=== PATIENT | female | born 1955 | race Caucasian/White ===

== ENCOUNTER 2019-07-18 09:59 | Outpatient (CLI) | payer MEDICARE, OTHER ==
--- NOTE | 2019-07-18 10:33 | MMO ---
Bilateral MAMMO Bilat Screen [facility]. CLINICAL HISTORY: Patient is 63 years old and is seen for screening. The patient has no family history of breast cancer. The patient has a history of Excisional biopsy procedure revealed invasive ductal left breast carcinoma in October,; invasive ductal left breast carcinoma in October, and Core biopsy procedure revealed invasive ductal left breast carcinoma in September,. The patient has a history of left Lumpectomy in October, - malignant. VIEWS: The views performed were: bilateral craniocaudal with tomosynthesis and bilateral mediolateral oblique with tomosynthesis. FILMS COMPARED: The present examination has been compared to prior imaging studies performed at [facility] on 04/03/2013, 10/01/2014, 10/20/2015 and 07/10/2017. This study has been interpreted with the assistance of computer-aided detection. MAMMOGRAM FINDINGS: There are scattered fibroglandular densities. Finding 1: There are stable benign appearing calcifications seen in both breasts. Finding 2: There are stable post operative changes seen in the left breast. There are no suspicious masses, suspicious calcifications, or new areas of architectural distortion. IMPRESSION: THERE IS NO MAMMOGRAPHIC EVIDENCE OF MALIGNANCY. A ROUTINE FOLLOW-UP MAMMOGRAM IN 1 YEAR IS RECOMMENDED. THE RESULTS OF THIS EXAM WERE SENT TO THE PATIENT. ACR BI-RADS Category 2 - Benign finding MAMMOGRAPHY NOTE: 1. A negative mammogram report should not delay a biopsy if a dominant of clinically suspicious mass is present. 2. Approximately 10% to 15% of breast cancers are not detected by mammography. 3. Adenosis and dense breasts may obscure an underlying neoplasm. Reported by: MARISOL GARAY MD Electonically Signed: [id number]
== END 2019-07-18 10:00 | disposition home or self-care (01) ==
LOC: BICMAMMO 09:59
PROVIDERS: ATTEND Family Medicine
DX: Z12.31 Encounter for screening mammogram for malignant neoplasm of breast (principal); Z85.3 Personal history of malignant neoplasm of breast
CPT/HCPCS: 77063; 77067

== ENCOUNTER 2021-07-14 07:16 | Emergency (ER) | payer MEDICARE, OTHER ==
[2021-07-14 08:27] LABS: #Basophils 0.1 thou/uL (0.0-0.2); #Eosinphils 0.1 thou/uL (0.0-0.7); #Lymphocytes 1.7 thou/uL (1.20-3.40); #Monocytes 0.3 thou/uL (0.11-0.59); #Neutrophils 6.1 thou/uL (1.40-6.50); %Basophils 0.8 % (0.0-1.0); %Eosinophils 1.2 % (0.0-10.0); %Lymphocytes 20.8 % (21.0-51.0); %Monocytes 3.8 % (0.0-10.0); %Neutrophils 73.5 % (42.0-75.0); Hemoglobin 10.2 g/dL (12.0-16.0); Mean Corpuscular HGB CONC 34.8 g/dL (32.0-36.0); Mean Corpuscular Hemoglobin 38.8 pg (27.0-31.0); Mean Platelet Volume 11.2 fL (7.4-10.4); Platelet Count 316 thou/uL (130-400); RBC Distribution Width 12.7 % (11.5-14.5); Red Blood Cell (RBC) Count 2.63 mill/uL (4.20-5.40); White Blood Cell (WBC) Count 8.3 thou/uL (4.8-10.8)
[2021-07-14 08:31] LABS: Prothrombin Time 13.6 sec (12.0-14.7)
[2021-07-14 09:05] LABS: MDiff Complete? YES; Macrocytosis SLIGHT = 6-15 cells (100X) (0-5/hpf); Platelet Morphology Comment Appears Adequate; Polychromasia SLIGHT = 2-3 cells (100X) (0-2/hpf)
[2021-07-14 10:01] LABS: ALT (SGPT) 9 U/L (8-55); AST (SGOT) 13 U/L (5-34); Alkaline Phosphatase 82 U/L (40-110); Anion Gap 12 mmol/L (10-20); BUN (Urea Nitrogen) 12 mg/dL (9.8-20.1); Bilirubin, Total 0.6 mg/dL (0.2-1.2); Calc. Creatinine Clearance 0 mL/min (70-130); Calcium 9.1 mg/dL (7.8-10.44); Carbon Dioxide 24 mmol/L (23-31); Chloride 106 mmol/L (98-107); Glucose 149 mg/dL (80-115); Potassium 4.2 mmol/L (3.5-5.1); Sodium 138 mmol/L (136-145)
== END 2021-07-14 10:05 | disposition home or self-care (01) ==
LOC: ERS 07:16
DX: K59.00 Constipation, unspecified (principal); K92.2 Gastrointestinal hemorrhage, unspecified; I10 Essential (primary) hypertension; F17.210 Nicotine dependence, cigarettes, uncomplicated; Z85.3 Personal history of malignant neoplasm of breast; Z79.899 Other long term (current) drug therapy
CPT/HCPCS: 36415; 74018; 80053; 85025; 85610

== ENCOUNTER 2023-02-08 13:20 | Outpatient (CLI) | payer MEDICARE | END 2023-02-08 13:21 | disposition home or self-care (01) | LOC: BICMAMMO 13:20 | PROVIDERS: ATTEND Family Medicine | DX: Z12.31 Encounter for screening mammogram for malignant neoplasm of breast (principal); Z78.0 Asymptomatic menopausal state; M81.0 Age-related osteoporosis without current pathological fracture | CPT/HCPCS: 77063; 77067; 77080 ==

== ENCOUNTER 2023-05-24 07:42 | Outpatient (CLI) | payer MEDICARE, OTHER ==
[2023-05-24] MEDS ORDERED: Iopamidol-370 76% 500 ML MDV (1 ML CHARGE) ONE (09:45)
== END 2023-05-24 07:43 | disposition home or self-care (01) ==
LOC: BICCT 07:42
PROVIDERS: ATTEND Specialist
DX: H90.3 Sensorineural hearing loss, bilateral (principal)
CPT/HCPCS: 70481; 70496

== ENCOUNTER 2023-06-01 03:37 | Emergency (ER) | payer MEDICARE, OTHER | END 2023-06-01 05:51 | disposition home or self-care (01) | LOC: ERS 03:37 | DX: H93.A2 Pulsatile tinnitus, left ear (principal); F17.210 Nicotine dependence, cigarettes, uncomplicated | CPT/HCPCS: 99283 ==

== ENCOUNTER 2023-06-12 17:47 | Inpatient (IN) | payer MEDICARE, OTHER ==
[2023-06-12 18:17] LABS: Hematocrit 12.4 % (36.0-47.0); Hemoglobin 4.1 g/dL (12.0-16.0); Mean Corpuscular HGB CONC 33.1 g/dL (32.0-36.0); Mean Corpuscular Hemoglobin 43.2 pg (27.0-31.0); Mean Corpuscular Volume 130.5 fl (78.0-98.0); Mean Platelet Volume 13.1 fL (7.4-10.4); Platelet Count 354 10x3/uL (130-400); RBC Distribution Width 16.7 % (11.5-14.5); Red Blood Cell (RBC) Count 0.95 mill/uL (4.20-5.40); White Blood Cell (WBC) Count 7.6 10x3/uL (4.8-10.8)
[2023-06-12 18:23] LABS: Delete Auto Diff?? YES; Manual Diff?? YES
[2023-06-12 18:41] LABS: ALT (SGPT) 31 U/L (8-55); AST (SGOT) 18 U/L (5-34); Albumin 4.4 g/dL (3.4-4.8); Alkaline Phosphatase 80 U/L (40-110); Anion Gap 13 mmol/L (10-20); BUN (Urea Nitrogen) 12 mg/dL (9.8-20.1); Bilirubin, Total 0.3 mg/dL (0.2-1.2); Calc. Creatinine Clearance 0 mL/min (70-130); Calcium 9.1 mg/dL (7.8-10.44); Carbon Dioxide 24 mmol/L (23-31); Chloride 101 mmol/L (98-107); Estimated GFR 90; Glucose 121 mg/dL (80-115); Protein, Total 7.4 g/dL (5.8-8.1); Sodium 134 mmol/L (136-145)
[2023-06-12 19:02] LABS: Anisocytosis SLIGHT = 6-15 cells HPF (0-5); Band 3 % (5-11); CellaVision Operator ID LAB.KB; Eosinophils 3 % (0-10); Large Platelets 39.4 % (0-5); Lymphocytes 49 % (21-51); Macrocytosis MODERATE=16-30 cells HPF (0-5); Monocytes 1 % (0-10); Neutrophil 44 % (42-75); Ovalocytes SLIGHT = 2-5 cells HPF (0-1); Platelet Adequacy Comment Platelets Normal; Polychromasia SLIGHT = 2-3 cells HPF (0-2); Smudge Cells 10.1 %; Total Cell Count 99
[2023-06-12] MEDS ORDERED: Ondansetron ODT 4 MG TAB PO PRN (19:09)
[2023-06-12] MEDS ORDERED: Acetaminophen 650 MG Suppository PR PRN (19:09)
[2023-06-12] MEDS ORDERED: Ondansetron PF 4 MG/2 ML Vial IVP PRN (19:09)
[2023-06-12 20:58] VITALS: BMI 23.1
[2023-06-12] MEDS ORDERED: ALPRAZolam 0.25 MG TAB PO SCH (21:45)
[2023-06-12] MEDS: Acetaminophen 325 MG TAB PO PRN (22:17)
[2023-06-12] MEDS: Pantoprazole 40 MG VIAL IVP SCH (22:19)
[2023-06-12 22:35] LABS: Iron 212 ug/dL (50-170); Iron Binding Capacity, Total 341 mcg/dL (265-497)
[2023-06-13 04:20] LABS: Ferritin 428.2 ng/mL (10-291)
[2023-06-13 04:46] LABS: Hematocrit 19.5 % (36.0-47.0); Hemoglobin 6.5 g/dL (12.0-16.0); Mean Corpuscular HGB CONC 33.3 g/dL (32.0-36.0); Mean Corpuscular Hemoglobin 35.7 pg (27.0-31.0); Mean Platelet Volume 13.3 fL (7.4-10.4); RBC Distribution Width 23.6 % (11.5-14.5); Red Blood Cell (RBC) Count 1.82 mill/uL (4.20-5.40); White Blood Cell (WBC) Count 7.2 10x3/uL (4.8-10.8)
[2023-06-13 04:51] LABS: Mean Corpuscular Volume 107.1 fl (78.0-98.0)
[2023-06-13 04:52] LABS: Delete Auto Diff?? YES; Manual Diff?? YES; Platelet Count 249 10x3/uL (130-400)
[2023-06-13] MEDS: Acetaminophen 325 MG TAB PO PRN ×4 (04:57→21:58)
[2023-06-13 05:41] LABS: Anisocytosis SLIGHT = 6-15 cells HPF (0-5); Band 1 % (5-11); CellaVision Operator ID lab.abc; Large Platelets 11.7 % (0-5); Lymphocytes 36 % (21-51); Macrocytosis SLIGHT = 6-15 cells HPF (0-5); Monocytes 7 % (0-10); Neutrophil 55 % (42-75); Platelet Adequacy Comment Platelets Normal; Polychromasia SLIGHT = 2-3 cells HPF (0-2); Smudge Cells 2.9 %; Total Cell Count 103
[2023-06-13 05:42] LABS: Anion Gap 10 mmol/L (10-20); BUN (Urea Nitrogen) 10 mg/dL (9.8-20.1); Calc. Creatinine Clearance 80 mL/min (70-130); Calcium 8.6 mg/dL (7.8-10.44); Carbon Dioxide 23 mmol/L (23-31); Chloride 107 mmol/L (98-107); Estimated GFR 96; Glucose 98 mg/dL (80-115); Potassium 4.1 mmol/L (3.5-5.1); Sodium 136 mmol/L (136-145)
[2023-06-13] MEDS: Pantoprazole 40 MG VIAL IVP SCH ×2 (09:11→21:58)
[2023-06-13] MEDS ORDERED: Bisacodyl 10 MG SUPP PR PRN (11:59)
[2023-06-13] MEDS ORDERED: Polyethylene Glycol 3350 17 GM Packet PO PRN (11:59)
[2023-06-13 12:53] LABS: INR-International Normal Ratio 1.2; Prothrombin Time 15.2 sec (12.0-14.7)
[2023-06-13 12:54] LABS: PTT 27.5 sec (22.9-36.1)
[2023-06-13] MEDS: ALPRAZolam 0.25 MG TAB PO PRN (12:56)
[2023-06-13 14:47] LABS: Hematocrit 23.4 % (36.0-47.0); Mean Corpuscular HGB CONC 34.2 g/dL (32.0-36.0); Mean Corpuscular Hemoglobin 35.4 pg (27.0-31.0); Mean Platelet Volume 13.2 fL (7.4-10.4); Platelet Count 253 10x3/uL (130-400); RBC Distribution Width 23.9 % (11.5-14.5); Red Blood Cell (RBC) Count 2.26 mill/uL (4.20-5.40); White Blood Cell (WBC) Count 8.3 10x3/uL (4.8-10.8)
[2023-06-13 15:02] LABS: Mean Corpuscular Volume 103.5 fl (78.0-98.0)
[2023-06-14 04:48] LABS: Hematocrit 22.6 % (36.0-47.0); Hemoglobin 7.7 g/dL (12.0-16.0); Mean Corpuscular HGB CONC 34.1 g/dL (32.0-36.0); Mean Corpuscular Hemoglobin 35.6 pg (27.0-31.0); Mean Corpuscular Volume 104.6 fl (78.0-98.0); Mean Platelet Volume 13.3 fL (7.4-10.4); Platelet Count 230 10x3/uL (130-400); RBC Distribution Width 23.6 % (11.5-14.5); Red Blood Cell (RBC) Count 2.16 mill/uL (4.20-5.40); White Blood Cell (WBC) Count 7.5 10x3/uL (4.8-10.8)
[2023-06-14] MEDS: Acetaminophen 325 MG TAB PO PRN ×2 (04:58→13:03)
[2023-06-14 05:05] LABS: Delete Auto Diff?? YES; Manual Diff?? YES
[2023-06-14 05:15] LABS: Anion Gap 11 mmol/L (10-20); BUN (Urea Nitrogen) 11 mg/dL (9.8-20.1); Calc. Creatinine Clearance 79 mL/min (70-130); Calcium 8.7 mg/dL (7.8-10.44); Carbon Dioxide 21 mmol/L (23-31); Chloride 107 mmol/L (98-107); Estimated GFR 95; Glucose 108 mg/dL (80-115); Potassium 4.2 mmol/L (3.5-5.1); Sodium 135 mmol/L (136-145)
[2023-06-14 05:30] LABS: Anisocytosis MODERATE=16-30 cells HPF (0-5); Band 22 % (5-11); CellaVision Operator ID LAB.JMM; Elliptocytes SLIGHT = 2-5 cells HPF (0-1); Eosinophils 2 % (0-10); Large Platelets 31.7 % (0-5); Lymphocytes 25 % (21-51); Macrocytosis SLIGHT = 6-15 cells HPF (0-5); Metamyelocyte 3 % (0-0); Monocytes 1 % (0-10); Myelocyte 1 % (0-0); Neutrophil 46 % (42-75); Nucleated RBC (Manual Ct) 1 % (0); Platelet Adequacy Comment Platelets Normal; Polychromasia MODERATE = 3-4 cells HPF (0-2); Total Cell Count 101
[2023-06-14] MEDS ORDERED: Polyethylene Glycol 3350 17 GM Packet PO SCH (09:00)
[2023-06-14] MEDS ORDERED: Folic Acid 1 MG TAB PO SCH (09:00)
[2023-06-14] MEDS: Pantoprazole 40 MG VIAL IVP SCH (09:36)
[2023-06-14 12:15] LABS: Hematocrit 23.5 % (36.0-47.0)
[2023-06-14] MEDS: ALPRAZolam 0.25 MG TAB PO PRN (13:03)
[2023-06-14 13:56] VITALS: BP 153/70; TEMP 97.9
[2023-06-14 15:15] LABS: Haptoglobin 180 mg/dL (37-355)
[2023-06-15 13:39] LABS: A/G Ratio 1.2 (0.7-1.7); Albumin 3.7 g/dL (2.9-4.4); Alpha 1 0.3 g/dL (0.0-0.4); Alpha 2 0.8 g/dL (0.4-1.0); Beta 1.1 g/dL (0.7-1.3); Globulin, Total 3.1 g/dL (2.2-3.9); M-Spike Not Observed g/dL (Not Observed)
[2023-06-15 14:15] LABS: Hemoglobin A2 2.1 % (1.8-3.2); Interpretation Note: (.)
== END 2023-06-14 16:10 | disposition home or self-care (01) | DRG 812 ==
LOC: ERS 17:47 → 2NO 18:53
PROVIDERS: ADMIT Student in an Organized Health Care Education/Training Program; ATTEND Emergency Medicine
PROC: 30233N1 Transfusion of Nonautologous Red Blood Cells into Peripheral Vein, Percutaneous Approach (ICD-10-PCS; principal; 2023-06-12)
DX: D53.9 Nutritional anemia, unspecified (principal); E87.1 Hypo-osmolality and hyponatremia; F41.9 Anxiety disorder, unspecified; F32.A Depression, unspecified; F17.210 Nicotine dependence, cigarettes, uncomplicated; K59.00 Constipation, unspecified; R16.0 Hepatomegaly, not elsewhere classified; K80.20 Calculus of gallbladder without cholecystitis without obstruction; Z90.710 Acquired absence of both cervix and uterus; Z98.890 Other specified postprocedural states; Z85.3 Personal history of malignant neoplasm of breast; Z88.1 Allergy status to other antibiotic agents; Z88.8 Allergy status to other drugs, medicaments and biological substances; Z88.2 Allergy status to sulfonamides; Z88.0 Allergy status to penicillin; Z79.899 Other long term (current) drug therapy
CPT/HCPCS: 36415; 36430; 76705; 80048; 80053; 80061; 81001; 82607; 82728; 83010; 83021; 83540; 83550; 83615; 84155; 84165; 84443; 85025; 85610; 85730; 86850; 86900; 86901; 94760; C9113; P9016

== ENCOUNTER 2023-07-19 10:12 | Day surgery (SDC) | payer MEDICARE, OTHER ==
[2023-07-19] MEDS ORDERED: diphenhydrAMINE 25 MG CAP PO SCH (10:45)
[2023-07-19] MEDS ORDERED: Acetaminophen 500 MG TAB PO SCH (10:45)
[2023-07-19] MEDS ORDERED: Acetaminophen 500 MG TAB ONE (11:32)
[2023-07-19 14:41] VITALS: BP 151/69; TEMP 98.3
== END 2023-07-19 14:41 | disposition home or self-care (01) ==
LOC: ONC/OP 10:12
PROVIDERS: ATTEND Internal Medicine Hematology & Oncology
DX: D64.9 Anemia, unspecified (principal)
CPT/HCPCS: 36430; 86850; 86900; 86901; 86920; P9016

== ENCOUNTER 2023-08-09 11:05 | Day surgery (SDC) | payer MEDICARE, OTHER ==
[2023-08-09] MEDS ORDERED: Acetaminophen 500 MG TAB PO SCH (11:30)
[2023-08-09] MEDS ORDERED: diphenhydrAMINE 25 MG CAP PO SCH (11:30)
[2023-08-09 11:43] VITALS: BP 153/68; TEMP 98.2
[2023-08-09] MEDS ORDERED: diphenhydrAMINE 25 MG CAP ONE (11:45)
[2023-08-09] MEDS ORDERED: Acetaminophen 500 MG TAB ONE (11:45)
== END 2023-08-09 13:50 | disposition home or self-care (01) ==
LOC: ONC/OP 11:05
PROVIDERS: ATTEND Internal Medicine Hematology & Oncology
DX: D64.9 Anemia, unspecified (principal); D69.6 Thrombocytopenia, unspecified
CPT/HCPCS: 86850; 86870; 86880; 86900; 86901

== ENCOUNTER 2023-08-10 10:04 | Day surgery (SDC) | payer MEDICARE, OTHER ==
[2023-08-10] MEDS ORDERED: Acetaminophen 500 MG TAB ONE (10:32)
[2023-08-10] MEDS ORDERED: diphenhydrAMINE 25 MG CAP ONE (10:32)
[2023-08-10] MEDS ORDERED: Acetaminophen 500 MG TAB PO SCH (11:15)
[2023-08-10] MEDS ORDERED: diphenhydrAMINE 25 MG CAP PO SCH (11:15)
[2023-08-10 14:12] VITALS: BP 154/70; TEMP 98.5
== END 2023-08-10 13:20 | disposition home or self-care (01) ==
LOC: ONC/OP 10:04
PROVIDERS: ATTEND Internal Medicine Hematology & Oncology
DX: D64.9 Anemia, unspecified (principal); D69.59 Other secondary thrombocytopenia
CPT/HCPCS: 36430; 86850; 86860; 86870 ×2; 86880; 86900; 86901; 86902; 86904; 86905; 86920; 86922; 86972; P9016

== ENCOUNTER 2023-08-11 12:39 | Emergency (ER) | payer MEDICARE, OTHER | END 2023-08-11 13:30 | disposition left against medical advice (07) | LOC: ERS 12:39 | DX: Z53.21 Procedure and treatment not carried out due to patient leaving prior to being seen by health care provider (principal) ==

== ENCOUNTER 2023-10-03 10:26 | Outpatient (CLI) | payer MEDICARE, OTHER | END 2023-10-03 10:27 | disposition home or self-care (01) | LOC: MRI 10:26 | PROVIDERS: ATTEND Family Medicine | DX: M51.16 Intervertebral disc disorders with radiculopathy, lumbar region (principal); M47.26 Other spondylosis with radiculopathy, lumbar region; M48.061 Spinal stenosis, lumbar region without neurogenic claudication; M54.12 Radiculopathy, cervical region | CPT/HCPCS: 72141; 72148 ==

== ENCOUNTER 2023-10-05 10:34 | Outpatient (CLI) | payer MEDICARE | END 2023-10-05 10:35 | disposition home or self-care (01) | LOC: BICRAD 10:34 | PROVIDERS: ATTEND Family Medicine | DX: M25.512 Pain in left shoulder (principal) ==

== ENCOUNTER 2023-10-31 03:27 | Emergency (ER) | payer MEDICARE | END 2023-10-31 04:15 | disposition home or self-care (01) | LOC: ERS 03:27 | DX: M70.22 Olecranon bursitis, left elbow (principal); I10 Essential (primary) hypertension; F17.200 Nicotine dependence, unspecified, uncomplicated ==

== ENCOUNTER 2024-03-19 17:19 | Emergency (ER) | payer MEDICARE | END 2024-03-19 18:30 | disposition left against medical advice (07) | LOC: ERS 17:19 | DX: Z53.21 Procedure and treatment not carried out due to patient leaving prior to being seen by health care provider (principal) ==